=== PATIENT | female | born 1945 | race African-American/Black ===

== ENCOUNTER 2017-08-29 22:28 | Inpatient (IN) ==
[2017-08-30 00:04] LABS: Troponin I Only 0.017 NG/ML (0.00-0.045)
[2017-08-30] MEDS ORDERED: cefTRIAXone 1,000 MG in SODIUM CHLORIDE 0.9% 100 ML IV STA (01:13)
[2017-08-30] MEDS ORDERED: LEVOFLOXACIN INJ 750 MG in PREMIX 1 EACH IV STA (01:41)
[2017-08-30] MEDS ORDERED: LEVOFLOXACIN INJ 150 ML IV ONE (01:47)
[2017-08-30] MEDS ORDERED: guaiFENesin/DM ER 600-30 MG TABLET PO PRN (02:14)
[2017-08-30] MEDS ORDERED: ALBUTEROL/IPRATROPIUM 3 ML NEB RESP TX PRN (02:17)
[2017-08-30] MEDS: ONDANSETRON 4 MG/2 ML VIAL IV PRN (04:09)
[2017-08-30 05:48] LABS: Basophils % 0.3 % (0.0-0.8); Eosinophils # 0.1 10*3/uL (0.0-0.87); Eosinophils % 1.9 % (0.00-10.9); Hematocrit 31.1 VOL% (35.7-47.0); Hemoglobin 9.9 GM/DL (12.0-16.0); Immature Granulocytes % 0.5 %; Immature Granulocytes Absolute 0.03 #; Mean Corpuscular HGB Conc 31.8 GM/DL (32-36); Mean Corpuscular Hemoglobin 27 PG (27-34); Mean Corpuscular Volume 83.2 FL (87-102); Mean Platelet Volume 13.2 FL (9.6-12.0); Monocytes # 0.5 10*3/uL (0.11-0.8); Monocytes % 9.2 % (1.7-12.7); Neutrophils % 70.1 % (38.7-73.9); Platelet Count 224 T/CUMM (130-400); Red Blood Count 3.74 MC/CUMM (3.8-5.5); Red Cell Distribution Width 15.8 % (9.3-17.3); White Blood Count 5.7 T/CUMM (4-12)
[2017-08-30 06:16] LABS: Calcium 8.3 MG/DL (8.5-10.1); Osmolality,Calculated 277.5 MOS/KG (273-304); Potassium 4.1 MMOL/L (3.5-5.1)
[2017-08-30] MEDS: SODIUM CHLORIDE 0.45% 1,000 ML IV SCH (06:29)
[2017-08-30] MEDS: ENOXAPARIN 30 MG/0.3 ML SYRINGE SUBCUT SCH (09:20)
[2017-08-30] MEDS: ASPIRIN EC 81 MG TABLET PO SCH (09:20)
[2017-08-30] MEDS: FUROSEMIDE 40 MG TABLET PO SCH (09:20)
[2017-08-30] MEDS: PANTOPRAZOLE 40 MG TABLET PO SCH (09:20)
[2017-08-30] MEDS: MAGNESIUM OXIDE 400 MG TABLET PO SCH ×2 (09:20→20:37)
[2017-08-30] MEDS: POTASSIUM CHLORIDE 10 MEQ TABLET PO SCH (09:20)
[2017-08-30] MEDS: AMIODARONE 200 MG TABLET PO SCH (09:28)
[2017-08-30 15:20] LABS: Apearance,Urine CLEAR (Clear); Bilirubin,Urine Negative (Negative); Blood, Urine Negative (Negative); Glucose,Urine (UA) Negative (Negative); Hyaline Casts,Urine 1 /LPF (0-3); Ketones,Urine Negative (Negative); Mucus,Urine Occasional /LPF (Occasional); Nitrite,Urine Negative (Negative); Protein,Urine Negative; Squamous Epithelial Cell,Urine Occasional /HPF (0-10); Urine Color Yellow (Yellow); Urine Specific Gravity 1.009 (1.001-1.035); Urine Urobilinogen < 2.0 EU/DL (0.2-1.0); WBC,Urine <1 /HPF (0-6)
[2017-08-30] MEDS: DOXYCYCLINE HYCLATE 100 MG CAPSULE PO SCH (20:37)
[2017-08-30] MEDS ORDERED: LEVOFLOXACIN INJ 750 MG in PREMIX 1 EACH IV SCH (21:00)
[2017-08-31] MEDS: SODIUM CHLORIDE 0.45% 1,000 ML IV SCH (03:04)
[2017-08-31] MEDS: DOXYCYCLINE HYCLATE 100 MG CAPSULE PO SCH ×2 (09:17→21:13)
[2017-08-31] MEDS: AMIODARONE 200 MG TABLET PO SCH (09:17)
[2017-08-31] MEDS: ENOXAPARIN 30 MG/0.3 ML SYRINGE SUBCUT SCH (09:17)
[2017-08-31] MEDS: POTASSIUM CHLORIDE 10 MEQ TABLET PO SCH (09:18)
[2017-08-31] MEDS: MAGNESIUM OXIDE 400 MG TABLET PO SCH ×2 (09:18→21:13)
[2017-08-31] MEDS: FUROSEMIDE 40 MG TABLET PO SCH (09:18)
[2017-08-31] MEDS: ASPIRIN EC 81 MG TABLET PO SCH (09:18)
[2017-08-31] MEDS: PANTOPRAZOLE 40 MG TABLET PO SCH (09:19)
[2017-08-31] MEDS: ACETAMINOPHEN 325 MG TABLET PO PRN (13:24)
[2017-09-01 05:48] LABS: Basophils % 0.4 % (0.0-0.8); Eosinophils # 0.3 10*3/uL (0.0-0.87); Hematocrit 31.8 VOL% (35.7-47.0); Immature Granulocytes % 0.4 %; Immature Granulocytes Absolute 0.02 #; Lymphocytes # 0.7 10*3/uL (1.4-4.0); Lymphocytes % 13.9 % (21.3-54.2); Mean Corpuscular HGB Conc 31.4 GM/DL (32-36); Mean Corpuscular Hemoglobin 26 PG (27-34); Mean Corpuscular Volume 83.7 FL (87-102); Mean Platelet Volume 12.8 FL (9.6-12.0); Monocytes # 0.4 10*3/uL (0.11-0.8); Monocytes % 8.4 % (1.7-12.7); Neutrophils # 3.8 10*3/uL (1.4-7.4); Neutrophils % 71.9 % (38.7-73.9); Platelet Count 230 T/CUMM (130-400); Red Cell Distribution Width 15.5 % (9.3-17.3); White Blood Count 5.3 T/CUMM (4-12)
[2017-09-01 06:21] LABS: Osmolality,Calculated 281.3 MOS/KG (273-304); Potassium 4.3 MMOL/L (3.5-5.1)
[2017-09-01] MEDS: DOXYCYCLINE HYCLATE 100 MG CAPSULE PO SCH ×2 (09:17→21:03)
[2017-09-01] MEDS: ENOXAPARIN 30 MG/0.3 ML SYRINGE SUBCUT SCH (09:17)
[2017-09-01] MEDS: FUROSEMIDE 40 MG TABLET PO SCH (09:17)
[2017-09-01] MEDS: AMIODARONE 200 MG TABLET PO SCH (09:18)
[2017-09-01] MEDS: MAGNESIUM OXIDE 400 MG TABLET PO SCH ×2 (09:18→21:03)
[2017-09-01] MEDS: ASPIRIN EC 81 MG TABLET PO SCH (09:18)
[2017-09-01] MEDS: PANTOPRAZOLE 40 MG TABLET PO SCH (09:18)
[2017-09-01] MEDS: POTASSIUM CHLORIDE 10 MEQ TABLET PO SCH (09:18)
[2017-09-02 05:57] LABS: Basophils % 0.5 % (0.0-0.8); Eosinophils # 0.1 10*3/uL (0.0-0.87); Hematocrit 31.6 VOL% (35.7-47.0); Hemoglobin 10.3 GM/DL (12.0-16.0); Immature Granulocytes % 0.3 %; Immature Granulocytes Absolute 0.02 #; Lymphocytes # 0.9 10*3/uL (1.4-4.0); Lymphocytes % 12.7 % (21.3-54.2); Mean Corpuscular HGB Conc 32.6 GM/DL (32-36); Mean Corpuscular Hemoglobin 27 PG (27-34); Mean Corpuscular Volume 82.5 FL (87-102); Mean Platelet Volume 12.3 FL (9.6-12.0); Monocytes # 0.9 10*3/uL (0.11-0.8); Monocytes % 12.9 % (1.7-12.7); Neutrophils # 5.3 10*3/uL (1.4-7.4); Neutrophils % 72.6 % (38.7-73.9); Platelet Count 246 T/CUMM (130-400); Red Blood Count 3.83 MC/CUMM (3.8-5.5); Red Cell Distribution Width 15.7 % (9.3-17.3); White Blood Count 7.3 T/CUMM (4-12)
[2017-09-02 06:28] LABS: Calcium 8.6 MG/DL (8.5-10.1)
[2017-09-02 06:29] LABS: Osmolality,Calculated 276.7 MOS/KG (273-304); Potassium 3.9 MMOL/L (3.5-5.1)
[2017-09-02] MEDS: ONDANSETRON 4 MG/2 ML VIAL IV PRN (08:24)
[2017-09-02] MEDS: AMIODARONE 200 MG TABLET PO SCH (09:49)
[2017-09-02] MEDS: PANTOPRAZOLE 40 MG TABLET PO SCH (09:49)
[2017-09-02] MEDS: ASPIRIN EC 81 MG TABLET PO SCH (09:49)
[2017-09-02] MEDS: MAGNESIUM OXIDE 400 MG TABLET PO SCH ×2 (09:49→21:11)
[2017-09-02] MEDS: FUROSEMIDE 40 MG TABLET PO SCH (09:49)
[2017-09-02] MEDS: POTASSIUM CHLORIDE 10 MEQ TABLET PO SCH (09:49)
[2017-09-02] MEDS: DOXYCYCLINE HYCLATE 100 MG CAPSULE PO SCH ×2 (09:49→21:11)
[2017-09-02] MEDS: ENOXAPARIN 30 MG/0.3 ML SYRINGE SUBCUT SCH (09:49)
[2017-09-02] MEDS: FUROSEMIDE 40 MG/4 ML VIAL IV SCH (16:25)
[2017-09-03 04:57] LABS: Basophils % 0.3 % (0.0-0.8); Eosinophils # 0.1 10*3/uL (0.0-0.87); Eosinophils % 1.6 % (0.00-10.9); Immature Granulocytes % 0.8 %; Immature Granulocytes Absolute 0.07 #; Lymphocytes # 0.9 10*3/uL (1.4-4.0); Lymphocytes % 9.9 % (21.3-54.2); Mean Corpuscular HGB Conc 32.3 GM/DL (32-36); Mean Corpuscular Hemoglobin 27 PG (27-34); Mean Corpuscular Volume 82.9 FL (87-102); Mean Platelet Volume 12.6 FL (9.6-12.0); Monocytes # 1.1 10*3/uL (0.11-0.8); Monocytes % 12.8 % (1.7-12.7); Neutrophils # 6.5 10*3/uL (1.4-7.4); Neutrophils % 74.6 % (38.7-73.9); Platelet Count 233 T/CUMM (130-400); Red Blood Count 3.74 MC/CUMM (3.8-5.5); Red Cell Distribution Width 15.7 % (9.3-17.3); White Blood Count 8.8 T/CUMM (4-12)
[2017-09-03 05:38] LABS: Calcium 8.6 MG/DL (8.5-10.1); Osmolality,Calculated 274.8 MOS/KG (273-304); Potassium 3.9 MMOL/L (3.5-5.1)
[2017-09-03] MEDS: PANTOPRAZOLE 40 MG TABLET PO SCH (09:19)
[2017-09-03] MEDS: MAGNESIUM OXIDE 400 MG TABLET PO SCH ×2 (09:19→20:50)
[2017-09-03] MEDS: FUROSEMIDE 40 MG/4 ML VIAL IV SCH ×2 (09:19→16:35)
[2017-09-03] MEDS: POTASSIUM CHLORIDE 10 MEQ TABLET PO SCH (09:19)
[2017-09-03] MEDS: DOXYCYCLINE HYCLATE 100 MG CAPSULE PO SCH ×2 (09:19→20:50)
[2017-09-03] MEDS: ASPIRIN EC 81 MG TABLET PO SCH (09:19)
[2017-09-03] MEDS: ENOXAPARIN 30 MG/0.3 ML SYRINGE SUBCUT SCH (09:19)
[2017-09-03] MEDS: ACETAMINOPHEN 325 MG TABLET PO PRN (09:19)
[2017-09-03] MEDS: AMIODARONE 200 MG TABLET PO SCH (09:19)
[2017-09-03] MEDS: CARVEDILOL 3.125 MG TABLET PO SCH ×2 (13:57→20:50)
[2017-09-04 06:19] LABS: Basophils % 0.3 % (0.0-0.8); Eosinophils # 0.3 10*3/uL (0.0-0.87); Eosinophils % 3.7 % (0.00-10.9); Hematocrit 29.4 VOL% (35.7-47.0); Hemoglobin 9.3 GM/DL (12.0-16.0); Immature Granulocytes % 0.6 %; Immature Granulocytes Absolute 0.04 #; Lymphocytes # 0.9 10*3/uL (1.4-4.0); Lymphocytes % 12.6 % (21.3-54.2); Mean Corpuscular HGB Conc 31.6 GM/DL (32-36); Mean Corpuscular Hemoglobin 26 PG (27-34); Mean Corpuscular Volume 83.1 FL (87-102); Mean Platelet Volume 13.1 FL (9.6-12.0); Monocytes # 0.9 10*3/uL (0.11-0.8); Monocytes % 12.4 % (1.7-12.7); Neutrophils # 4.9 10*3/uL (1.4-7.4); Neutrophils % 70.4 % (38.7-73.9); Platelet Count 232 T/CUMM (130-400); Red Blood Count 3.54 MC/CUMM (3.8-5.5); Red Cell Distribution Width 15.4 % (9.3-17.3)
[2017-09-04 07:04] LABS: Calcium 8.6 MG/DL (8.5-10.1); Osmolality,Calculated 275.7 MOS/KG (273-304); Potassium 4.4 MMOL/L (3.5-5.1)
[2017-09-04] MEDS: FUROSEMIDE 40 MG/4 ML VIAL IV SCH ×2 (10:07→16:13)
[2017-09-04] MEDS: ENOXAPARIN 40 MG/0.4 ML SYRINGE SUBCUT SCH (10:08)
[2017-09-04] MEDS: MAGNESIUM OXIDE 400 MG TABLET PO SCH ×2 (10:08→21:03)
[2017-09-04] MEDS: metOLazone 5 MG TABLET PO SCH (10:08)
[2017-09-04] MEDS: CARVEDILOL 3.125 MG TABLET PO SCH ×2 (10:09→21:03)
[2017-09-04] MEDS: AMIODARONE 200 MG TABLET PO SCH (10:09)
[2017-09-04] MEDS: PANTOPRAZOLE 40 MG TABLET PO SCH (10:09)
[2017-09-04] MEDS: DOXYCYCLINE HYCLATE 100 MG CAPSULE PO SCH ×2 (10:09→21:03)
[2017-09-04] MEDS: POTASSIUM CHLORIDE 10 MEQ TABLET PO SCH (10:09)
[2017-09-04] MEDS: ASPIRIN EC 81 MG TABLET PO SCH (10:09)
[2017-09-04] MEDS: ONDANSETRON 4 MG/2 ML VIAL IV PRN (11:06)
[2017-09-04] MEDS: cefTRIAXone 2,000 MG in SYRINGE 1 EACH IV SCH (13:39)
[2017-09-05 04:58] LABS: Basophils % 0.4 % (0.0-0.8); Eosinophils # 0.2 10*3/uL (0.0-0.87); Eosinophils % 4.2 % (0.00-10.9); Hematocrit 29.5 VOL% (35.7-47.0); Hemoglobin 9.4 GM/DL (12.0-16.0); Immature Granulocytes % 0.8 %; Immature Granulocytes Absolute 0.04 #; Lymphocytes # 0.6 10*3/uL (1.4-4.0); Lymphocytes % 12.3 % (21.3-54.2); Mean Corpuscular HGB Conc 31.9 GM/DL (32-36); Mean Corpuscular Hemoglobin 26 PG (27-34); Mean Corpuscular Volume 81.9 FL (87-102); Mean Platelet Volume 12.3 FL (9.6-12.0); Monocytes # 0.7 10*3/uL (0.11-0.8); Monocytes % 13.8 % (1.7-12.7); Neutrophils # 3.6 10*3/uL (1.4-7.4); Neutrophils % 68.5 % (38.7-73.9); Platelet Count 240 T/CUMM (130-400); Red Cell Distribution Width 15.4 % (9.3-17.3); White Blood Count 5.2 T/CUMM (4-12)
[2017-09-05 05:31] LABS: Calcium 8.8 MG/DL (8.5-10.1); Potassium 3.4 MMOL/L (3.5-5.1)
[2017-09-05] MEDS: POTASSIUM CHLORIDE 10 MEQ TABLET PO SCH (09:13)
[2017-09-05] MEDS: DOXYCYCLINE HYCLATE 100 MG CAPSULE PO SCH (09:14)
[2017-09-05] MEDS: FUROSEMIDE 40 MG/4 ML VIAL IV SCH ×2 (09:14→18:10)
[2017-09-05] MEDS: CARVEDILOL 3.125 MG TABLET PO SCH (09:14)
[2017-09-05] MEDS: MAGNESIUM OXIDE 400 MG TABLET PO SCH (09:14)
[2017-09-05] MEDS: ASPIRIN EC 81 MG TABLET PO SCH (09:14)
[2017-09-05] MEDS: PANTOPRAZOLE 40 MG TABLET PO SCH (09:14)
[2017-09-05] MEDS: ENOXAPARIN 40 MG/0.4 ML SYRINGE SUBCUT SCH (09:14)
[2017-09-05] MEDS: AMIODARONE 200 MG TABLET PO SCH (09:14)
[2017-09-05] MEDS: metOLazone 5 MG TABLET PO SCH (09:14)
[2017-09-05] MEDS ORDERED: cefTRIAXone 2,000 MG in SYRINGE 1 EACH IV SCH (11:00)
[2017-09-05] MEDS: ONDANSETRON 4 MG/2 ML VIAL IV PRN (11:24)
[2017-09-05] MEDS: cefTRIAXone 2,000 MG in SYRINGE 1 EACH IV SCH (12:45)
[2017-09-05] MEDS ORDERED: POTASSIUM CHLORIDE 20 MEQ TABLET PO ONE (12:48)
[2017-09-05 17:44] VITALS: BP 105/59
== END 2017-09-05 18:30 | disposition home or self-care (01) | DRG 193 ==
LOC: EDBD → EDUNIT# → N.ED 22:28 → N.EDINP 08-30 02:14 → N.TELES 08-30 03:37
PROVIDERS: ADMIT Hospitalist; ATTEND Hospitalist

== ENCOUNTER 2019-08-25 23:50 | Inpatient (IN) ==
[2019-08-26] MEDS ORDERED: PROMETHAZINE 25 MG/1 ML VIAL IM PRN (03:16)
[2019-08-26] MEDS ORDERED: ALBUTEROL 2.5 MG/3 ML NEB RESP TX PRN (03:16)
[2019-08-26] MEDS: AMPICILLIN/SULBACTAM 1,500 MG in SODIUM CHLORIDE 0.9% 100 ML IV SCH ×4 (03:55→21:05)
[2019-08-26] MEDS ORDERED: MECLIZINE 25 MG TABLET PO PRN (04:19)
[2019-08-26] MEDS ORDERED: LEVALBUTEROL 1.25 MG/3 ML NEB RESP TX PRN (04:20)
[2019-08-26 06:40] LABS: Basophils % 0.2 % (0.0-0.8); Eosinophils % 0.2 % (0.00-10.9); Hematocrit 36.3 VOL% (35.7-47.0); Hemoglobin 11.4 GM/DL (12.0-16.0); Immature Granulocytes % 0.4 %; Immature Granulocytes Absolute 0.05 #; Lymphocytes # 0.5 10*3/uL (1.4-4.0); Lymphocytes % 4.4 % (21.3-54.2); Mean Corpuscular HGB Conc 31.4 GM/DL (32-36); Mean Corpuscular Volume 88.3 FL (87-102); Mean Platelet Volume 13.9 FL (9.6-12.0); Monocytes % 5.4 % (1.7-12.7); Neutrophils % 89.4 % (38.7-73.9); Platelet Count 131 T/CUMM (130-400); Red Blood Count 4.11 MC/CUMM (3.8-5.5); Red Cell Distribution Width 13.6 % (9.3-17.3); White Blood Count 12.2 T/CUMM (4-12)
[2019-08-26 07:01] LABS: Albumin 3.4 G/DL (3.4-5.0); Bilirubin,Total 0.7 MG/DL (0.2-1.0); Calcium 8.7 MG/DL (8.5-10.1); Osmolality,Calculated 286.1 MOS/KG (273-304)
[2019-08-26 07:13] LABS: Lymphocytes 2 % (20-55); Segmented Neutrophils 95 % (50-85); Total Cells Counted 100
[2019-08-26 07:15] LABS: Hypochromasia 2+; Ovalocytes Few
[2019-08-26 07:16] LABS: Microcytosis 2+; Platelet Estimate Adequate; Polychromasia Slight
[2019-08-26] MEDS: ENOXAPARIN 40 MG/0.4 ML SYRINGE SUBCUT SCH (08:32)
[2019-08-26] MEDS ORDERED: PANTOPRAZOLE 40 MG VIAL IV SCH (09:00)
[2019-08-26] MEDS ORDERED: RACEPINEPHRINE 0.5 ML NEB RESP TX ONE (13:16)
[2019-08-27] MEDS: AMPICILLIN/SULBACTAM 1,500 MG in SODIUM CHLORIDE 0.9% 100 ML IV SCH ×4 (04:58→21:00)
[2019-08-27 05:48] LABS: Basophils % 0.3 % (0.0-0.8); Eosinophils # 0.1 10*3/uL (0.0-0.87); Eosinophils % 1.9 % (0.00-10.9); Hematocrit 32.2 VOL% (35.7-47.0); Immature Granulocytes % 0.3 %; Immature Granulocytes Absolute 0.02 #; Lymphocytes # 1.1 10*3/uL (1.4-4.0); Lymphocytes % 15.7 % (21.3-54.2); Mean Corpuscular HGB Conc 31.1 GM/DL (32-36); Mean Corpuscular Volume 89.7 FL (87-102); Mean Platelet Volume 14.2 FL (9.6-12.0); Monocytes % 9.9 % (1.7-12.7); Neutrophils % 71.9 % (38.7-73.9); Platelet Count 111 T/CUMM (130-400); Red Blood Count 3.59 MC/CUMM (3.8-5.5); Red Cell Distribution Width 13.6 % (9.3-17.3); White Blood Count 7.2 T/CUMM (4-12)
[2019-08-27 06:04] LABS: Calcium 8.7 MG/DL (8.5-10.1); Osmolality,Calculated 280.4 MOS/KG (273-304)
[2019-08-27] MEDS: MAGNESIUM OXIDE 400 MG TABLET PO SCH ×2 (08:57→16:24)
[2019-08-27] MEDS: ASPIRIN EC 81 MG TABLET PO SCH (08:57)
[2019-08-27] MEDS: PANTOPRAZOLE 40 MG TABLET PO SCH (08:57)
[2019-08-27] MEDS: ACETAMINOPHEN 325 MG TABLET PO PRN ×2 (08:57→21:32)
[2019-08-27] MEDS: IRON (CARBONYL)/VIT C/B12/FA TABLET PO SCH (08:57)
[2019-08-27] MEDS: ENOXAPARIN 40 MG/0.4 ML SYRINGE SUBCUT SCH (08:57)
[2019-08-27] MEDS ORDERED: Mesalamine [Apriso] 1.5 GM PO SCH (09:00)
[2019-08-27] MEDS: ONDANSETRON 4 MG/2 ML VIAL IV PRN (18:19)
[2019-08-28] MEDS: AMPICILLIN/SULBACTAM 1,500 MG in SODIUM CHLORIDE 0.9% 100 ML IV SCH ×4 (04:08→21:42)
[2019-08-28] MEDS: MAGNESIUM OXIDE 400 MG TABLET PO SCH ×2 (08:48→16:35)
[2019-08-28] MEDS: IRON (CARBONYL)/VIT C/B12/FA TABLET PO SCH (08:48)
[2019-08-28] MEDS: PANTOPRAZOLE 40 MG TABLET PO SCH (08:48)
[2019-08-28] MEDS: ENOXAPARIN 40 MG/0.4 ML SYRINGE SUBCUT SCH (08:48)
[2019-08-28] MEDS: ASPIRIN EC 81 MG TABLET PO SCH (08:48)
[2019-08-28 09:29] LABS: Hematocrit 35.5 VOL% (35.7-47.0)
[2019-08-29] MEDS: AMPICILLIN/SULBACTAM 1,500 MG in SODIUM CHLORIDE 0.9% 100 ML IV SCH ×4 (04:30→23:04)
[2019-08-29 05:03] LABS: Calcium 8.7 MG/DL (8.5-10.1); Osmolality,Calculated 277.5 MOS/KG (273-304)
[2019-08-29] MEDS: ENOXAPARIN 40 MG/0.4 ML SYRINGE SUBCUT SCH (08:43)
[2019-08-29] MEDS: POTASSIUM CHLORIDE 10 MEQ TABLET PO SCH (08:44)
[2019-08-29] MEDS: IRON (CARBONYL)/VIT C/B12/FA TABLET PO SCH (08:44)
[2019-08-29] MEDS: DIGOXIN 0.125 MG TABLET PO SCH (08:44)
[2019-08-29] MEDS: ASPIRIN EC 81 MG TABLET PO SCH (08:44)
[2019-08-29] MEDS: LISINOPRIL 2.5 MG TABLET PO SCH (08:44)
[2019-08-29] MEDS: MOMETASONE 50 MCG NASAL SPRAY 17 GM BOTTLE BOTH NARES SCH (08:44)
[2019-08-29] MEDS: AMIODARONE 200 MG TABLET PO SCH (08:45)
[2019-08-29] MEDS: PANTOPRAZOLE 40 MG TABLET PO SCH (08:45)
[2019-08-29] MEDS: MAGNESIUM OXIDE 400 MG TABLET PO SCH ×2 (08:48→17:00)
[2019-08-29] MEDS ORDERED: FUROSEMIDE 20 MG TABLET PO SCH (09:00)
[2019-08-29] MEDS ORDERED: FUROSEMIDE 20 MG/2 ML VIAL IV ONE (12:10)
[2019-08-29 12:42] LABS: Basophils % 0.2 % (0.0-0.8); Eosinophils % 0.1 % (0.00-10.9); Hematocrit 29.9 VOL% (35.7-47.0); Hemoglobin 9.3 GM/DL (12.0-16.0); Immature Granulocytes % 0.7 %; Immature Granulocytes Absolute 0.08 #; Lymphocytes # 0.7 10*3/uL (1.4-4.0); Lymphocytes % 5.7 % (21.3-54.2); Mean Corpuscular HGB Conc 31.1 GM/DL (32-36); Mean Platelet Volume 14.5 FL (9.6-12.0); Monocytes % 7.8 % (1.7-12.7); Neutrophils % 85.5 % (38.7-73.9); Platelet Count 106 T/CUMM (130-400); Red Blood Count 3.36 MC/CUMM (3.8-5.5); Red Cell Distribution Width 13.3 % (9.3-17.3); White Blood Count 12.2 T/CUMM (4-12)
[2019-08-29] MEDS: FUROSEMIDE 40 MG/4 ML VIAL IV SCH (18:20)
[2019-08-30] MEDS: AMPICILLIN/SULBACTAM 1,500 MG in SODIUM CHLORIDE 0.9% 100 ML IV SCH ×4 (04:29→22:08)
[2019-08-30] MEDS: BENZONATATE 100 MG CAPSULE PO PRN (04:30)
[2019-08-30 04:35] LABS: Basophils % 0.2 % (0.0-0.8); Eosinophils % 0.1 % (0.00-10.9); Hematocrit 30.2 VOL% (35.7-47.0); Hemoglobin 9.4 GM/DL (12.0-16.0); Immature Granulocytes % 0.5 %; Immature Granulocytes Absolute 0.06 #; Lymphocytes # 0.9 10*3/uL (1.4-4.0); Lymphocytes % 7.4 % (21.3-54.2); Mean Corpuscular HGB Conc 31.1 GM/DL (32-36); Mean Corpuscular Volume 86.8 FL (87-102); Mean Platelet Volume 14.7 FL (9.6-12.0); Monocytes % 8.3 % (1.7-12.7); Neutrophils % 83.5 % (38.7-73.9); Platelet Count 125 T/CUMM (130-400); Red Blood Count 3.48 MC/CUMM (3.8-5.5); Red Cell Distribution Width 13.4 % (9.3-17.3); White Blood Count 11.8 T/CUMM (4-12)
[2019-08-30 04:58] LABS: Calcium 8.7 MG/DL (8.5-10.1); Osmolality,Calculated 282.3 MOS/KG (273-304)
[2019-08-30] MEDS: FUROSEMIDE 40 MG/4 ML VIAL IV SCH ×2 (09:20→16:35)
[2019-08-30] MEDS: AMIODARONE 200 MG TABLET PO SCH (10:01)
[2019-08-30] MEDS: MAGNESIUM OXIDE 400 MG TABLET PO SCH ×2 (10:01→16:35)
[2019-08-30] MEDS: PANTOPRAZOLE 40 MG TABLET PO SCH (10:01)
[2019-08-30] MEDS: IRON (CARBONYL)/VIT C/B12/FA TABLET PO SCH (10:01)
[2019-08-30] MEDS: POTASSIUM CHLORIDE 10 MEQ TABLET PO SCH (10:01)
[2019-08-30] MEDS: DIGOXIN 0.125 MG TABLET PO SCH (10:02)
[2019-08-30] MEDS: ASPIRIN EC 81 MG TABLET PO SCH (10:07)
[2019-08-30] MEDS: ENOXAPARIN 40 MG/0.4 ML SYRINGE SUBCUT SCH (10:08)
[2019-08-30] MEDS: LISINOPRIL 2.5 MG TABLET PO SCH (10:09)
[2019-08-30] MEDS: MOMETASONE 50 MCG NASAL SPRAY 17 GM BOTTLE BOTH NARES SCH (10:11)
[2019-08-30] MEDS: ONDANSETRON 4 MG/2 ML VIAL IV PRN (11:25)
[2019-08-31] MEDS: AMPICILLIN/SULBACTAM 1,500 MG in SODIUM CHLORIDE 0.9% 100 ML IV SCH ×4 (04:19→22:02)
[2019-08-31 04:53] LABS: Basophils % 0.2 % (0.0-0.8); Eosinophils # 0.1 10*3/uL (0.0-0.87); Eosinophils % 1.3 % (0.00-10.9); Hematocrit 28.5 VOL% (35.7-47.0); Hemoglobin 9.1 GM/DL (12.0-16.0); Immature Granulocytes % 0.4 %; Immature Granulocytes Absolute 0.04 #; Lymphocytes # 0.8 10*3/uL (1.4-4.0); Lymphocytes % 7.3 % (21.3-54.2); Mean Corpuscular HGB Conc 31.9 GM/DL (32-36); Mean Corpuscular Volume 86.1 FL (87-102); Mean Platelet Volume 13.6 FL (9.6-12.0); Neutrophils % 82.8 % (38.7-73.9); Platelet Count 136 T/CUMM (130-400); Red Blood Count 3.31 MC/CUMM (3.8-5.5); Red Cell Distribution Width 13.4 % (9.3-17.3); White Blood Count 11.1 T/CUMM (4-12)
[2019-08-31 05:08] LABS: Calcium 8.8 MG/DL (8.5-10.1); Osmolality,Calculated 284.1 MOS/KG (273-304)
[2019-08-31] MEDS: FUROSEMIDE 40 MG/4 ML VIAL IV SCH ×2 (08:59→16:38)
[2019-08-31] MEDS: ASPIRIN EC 81 MG TABLET PO SCH (09:50)
[2019-08-31] MEDS: DIGOXIN 0.125 MG TABLET PO SCH (09:50)
[2019-08-31] MEDS: LISINOPRIL 2.5 MG TABLET PO SCH (09:50)
[2019-08-31] MEDS: MAGNESIUM OXIDE 400 MG TABLET PO SCH ×2 (09:51→16:40)
[2019-08-31] MEDS: IRON (CARBONYL)/VIT C/B12/FA TABLET PO SCH (09:51)
[2019-08-31] MEDS: ENOXAPARIN 40 MG/0.4 ML SYRINGE SUBCUT SCH (09:52)
[2019-08-31] MEDS: AMIODARONE 200 MG TABLET PO SCH (09:53)
[2019-08-31] MEDS: POTASSIUM CHLORIDE 10 MEQ TABLET PO SCH (09:53)
[2019-08-31] MEDS: PANTOPRAZOLE 40 MG TABLET PO SCH (09:57)
[2019-08-31] MEDS: MOMETASONE 50 MCG NASAL SPRAY 17 GM BOTTLE BOTH NARES SCH (09:58)
[2019-08-31] MEDS: BENZONATATE 100 MG CAPSULE PO PRN (10:54)
[2019-08-31] MEDS: NYSTATIN 500,000 UNIT/5 ML UDCUP SWISH/SWAL SCH ×2 (17:49→22:02)
[2019-08-31] MEDS ORDERED: NYSTATIN 500,000 UNIT/5 ML UDCUP SWISH/SWAL SCH (21:00)
[2019-09-01] MEDS: AMPICILLIN/SULBACTAM 1,500 MG in SODIUM CHLORIDE 0.9% 100 ML IV SCH ×4 (03:59→22:04)
[2019-09-01] MEDS: PANTOPRAZOLE 40 MG TABLET PO SCH (08:53)
[2019-09-01] MEDS: LISINOPRIL 2.5 MG TABLET PO SCH (08:53)
[2019-09-01] MEDS: ASPIRIN EC 81 MG TABLET PO SCH (08:53)
[2019-09-01] MEDS: DIGOXIN 0.125 MG TABLET PO SCH (08:53)
[2019-09-01] MEDS: IRON (CARBONYL)/VIT C/B12/FA TABLET PO SCH (08:53)
[2019-09-01] MEDS: AMIODARONE 200 MG TABLET PO SCH (08:53)
[2019-09-01] MEDS: POTASSIUM CHLORIDE 10 MEQ TABLET PO SCH (08:53)
[2019-09-01] MEDS: MAGNESIUM OXIDE 400 MG TABLET PO SCH ×2 (08:53→17:02)
[2019-09-01] MEDS: FUROSEMIDE 40 MG/4 ML VIAL IV SCH ×2 (08:54→16:45)
[2019-09-01] MEDS: ENOXAPARIN 40 MG/0.4 ML SYRINGE SUBCUT SCH (08:54)
[2019-09-01] MEDS: NYSTATIN 500,000 UNIT/5 ML UDCUP SWISH/SWAL SCH ×4 (08:54→21:42)
[2019-09-01] MEDS: MOMETASONE 50 MCG NASAL SPRAY 17 GM BOTTLE BOTH NARES SCH (09:00)
[2019-09-02] MEDS: AMPICILLIN/SULBACTAM 1,500 MG in SODIUM CHLORIDE 0.9% 100 ML IV SCH ×2 (03:49→09:53)
[2019-09-02 05:43] LABS: Basophils % 0.5 % (0.0-0.8); Eosinophils # 0.3 10*3/uL (0.0-0.87); Hematocrit 26.5 VOL% (35.7-47.0); Hemoglobin 8.3 GM/DL (12.0-16.0); Immature Granulocytes % 0.4 %; Immature Granulocytes Absolute 0.02 #; Lymphocytes # 0.7 10*3/uL (1.4-4.0); Lymphocytes % 13.1 % (21.3-54.2); Mean Corpuscular HGB Conc 31.3 GM/DL (32-36); Mean Corpuscular Volume 86.9 FL (87-102); Mean Platelet Volume 13.2 FL (9.6-12.0); Monocytes % 10.3 % (1.7-12.7); Neutrophils % 70.7 % (38.7-73.9); Platelet Count 168 T/CUMM (130-400); Red Blood Count 3.05 MC/CUMM (3.8-5.5); Red Cell Distribution Width 13.3 % (9.3-17.3); White Blood Count 5.6 T/CUMM (4-12)
[2019-09-02 06:07] LABS: Calcium 8.5 MG/DL (8.5-10.1); Osmolality,Calculated 282.1 MOS/KG (273-304)
[2019-09-02] MEDS: NYSTATIN 500,000 UNIT/5 ML UDCUP SWISH/SWAL SCH ×4 (09:42→20:46)
[2019-09-02] MEDS: FUROSEMIDE 40 MG/4 ML VIAL IV SCH ×2 (09:42→16:49)
[2019-09-02] MEDS: ENOXAPARIN 40 MG/0.4 ML SYRINGE SUBCUT SCH (09:42)
[2019-09-02] MEDS: ASPIRIN EC 81 MG TABLET PO SCH (09:43)
[2019-09-02] MEDS: PANTOPRAZOLE 40 MG TABLET PO SCH (09:43)
[2019-09-02] MEDS: AMIODARONE 200 MG TABLET PO SCH (09:43)
[2019-09-02] MEDS: LISINOPRIL 2.5 MG TABLET PO SCH (09:43)
[2019-09-02] MEDS: POTASSIUM CHLORIDE 10 MEQ TABLET PO SCH (09:43)
[2019-09-02] MEDS: IRON (CARBONYL)/VIT C/B12/FA TABLET PO SCH (09:43)
[2019-09-02] MEDS: MAGNESIUM OXIDE 400 MG TABLET PO SCH ×2 (09:44→16:49)
[2019-09-02] MEDS: DIGOXIN 0.125 MG TABLET PO SCH (09:44)
[2019-09-02] MEDS: MOMETASONE 50 MCG NASAL SPRAY 17 GM BOTTLE BOTH NARES SCH (09:45)
[2019-09-02] MEDS ORDERED: POTASSIUM CHLORIDE 20 MEQ TABLET PO ONE (13:08)
[2019-09-02] MEDS: POTASSIUM BICARB EFFERVESCENT 25 MEQ TABLET PO SCH ×2 (14:17→20:46)
[2019-09-03 06:43] LABS: Basophils % 0.3 % (0.0-0.8); Eosinophils # 0.2 10*3/uL (0.0-0.87); Eosinophils % 3.6 % (0.00-10.9); Hematocrit 28.9 VOL% (35.7-47.0); Immature Granulocytes % 0.6 %; Immature Granulocytes Absolute 0.04 #; Lymphocytes # 0.9 10*3/uL (1.4-4.0); Lymphocytes % 13.4 % (21.3-54.2); Mean Corpuscular HGB Conc 31.1 GM/DL (32-36); Mean Corpuscular Volume 86.5 FL (87-102); Mean Platelet Volume 12.9 FL (9.6-12.0); Monocytes % 8.9 % (1.7-12.7); Neutrophils % 73.2 % (38.7-73.9); Platelet Count 216 T/CUMM (130-400); Red Blood Count 3.34 MC/CUMM (3.8-5.5); Red Cell Distribution Width 13.3 % (9.3-17.3); White Blood Count 6.4 T/CUMM (4-12)
[2019-09-03 07:06] LABS: Calcium 8.9 MG/DL (8.5-10.1)
[2019-09-03] MEDS: MAGNESIUM OXIDE 400 MG TABLET PO SCH ×2 (08:51→16:46)
[2019-09-03] MEDS: POTASSIUM BICARB EFFERVESCENT 25 MEQ TABLET PO SCH ×2 (08:51→20:40)
[2019-09-03] MEDS: PANTOPRAZOLE 40 MG TABLET PO SCH (08:51)
[2019-09-03] MEDS: IRON (CARBONYL)/VIT C/B12/FA TABLET PO SCH (08:51)
[2019-09-03] MEDS: AMIODARONE 200 MG TABLET PO SCH (08:51)
[2019-09-03] MEDS: LISINOPRIL 2.5 MG TABLET PO SCH (08:51)
[2019-09-03] MEDS: DIGOXIN 0.125 MG TABLET PO SCH (08:52)
[2019-09-03] MEDS: AMOXICILLIN/CLAV 500 MG TABLET PO SCH ×2 (08:53→20:40)
[2019-09-03] MEDS: ENOXAPARIN 40 MG/0.4 ML SYRINGE SUBCUT SCH (08:53)
[2019-09-03] MEDS: FUROSEMIDE 40 MG/4 ML VIAL IV SCH ×2 (08:53→16:46)
[2019-09-03] MEDS: POTASSIUM CHLORIDE 10 MEQ TABLET PO SCH (08:53)
[2019-09-03] MEDS: NYSTATIN 500,000 UNIT/5 ML UDCUP SWISH/SWAL SCH ×4 (08:53→20:40)
[2019-09-03] MEDS: ASPIRIN EC 81 MG TABLET PO SCH (08:53)
[2019-09-04 07:04] LABS: Basophils % 0.4 % (0.0-0.8); Eosinophils # 0.2 10*3/uL (0.0-0.87); Eosinophils % 3.4 % (0.00-10.9); Hematocrit 27.7 VOL% (35.7-47.0); Hemoglobin 8.5 GM/DL (12.0-16.0); Immature Granulocytes % 0.8 %; Immature Granulocytes Absolute 0.04 #; Lymphocytes # 1.1 10*3/uL (1.4-4.0); Lymphocytes % 20.4 % (21.3-54.2); Mean Corpuscular HGB Conc 30.7 GM/DL (32-36); Mean Corpuscular Volume 86.8 FL (87-102); Mean Platelet Volume 12.4 FL (9.6-12.0); Monocytes % 9.1 % (1.7-12.7); Neutrophils % 65.9 % (38.7-73.9); Platelet Count 251 T/CUMM (130-400); Red Blood Count 3.19 MC/CUMM (3.8-5.5); Red Cell Distribution Width 13.4 % (9.3-17.3); White Blood Count 5.3 T/CUMM (4-12)
[2019-09-04 07:34] LABS: Calcium 8.9 MG/DL (8.5-10.1); Osmolality,Calculated 286.8 MOS/KG (273-304)
[2019-09-04] MEDS: PANTOPRAZOLE 40 MG TABLET PO SCH (08:43)
[2019-09-04] MEDS: POTASSIUM BICARB EFFERVESCENT 25 MEQ TABLET PO SCH ×2 (08:43→21:20)
[2019-09-04] MEDS: IRON (CARBONYL)/VIT C/B12/FA TABLET PO SCH (08:43)
[2019-09-04] MEDS: AMIODARONE 200 MG TABLET PO SCH (08:43)
[2019-09-04] MEDS: POTASSIUM CHLORIDE 10 MEQ TABLET PO SCH (08:43)
[2019-09-04] MEDS: NYSTATIN 500,000 UNIT/5 ML UDCUP SWISH/SWAL SCH ×4 (08:44→21:20)
[2019-09-04] MEDS: LISINOPRIL 2.5 MG TABLET PO SCH (08:44)
[2019-09-04] MEDS: ENOXAPARIN 40 MG/0.4 ML SYRINGE SUBCUT SCH (08:44)
[2019-09-04] MEDS: MAGNESIUM OXIDE 400 MG TABLET PO SCH ×2 (08:44→16:43)
[2019-09-04] MEDS: FUROSEMIDE 40 MG/4 ML VIAL IV SCH (08:44)
[2019-09-04] MEDS: ASPIRIN EC 81 MG TABLET PO SCH (08:44)
[2019-09-04] MEDS: AMOXICILLIN/CLAV 500 MG TABLET PO SCH ×2 (08:45→21:20)
[2019-09-04] MEDS: DIGOXIN 0.125 MG TABLET PO SCH (08:45)
[2019-09-05 05:04] LABS: Basophils % 0.5 % (0.0-0.8); Eosinophils # 0.2 10*3/uL (0.0-0.87); Eosinophils % 3.3 % (0.00-10.9); Hematocrit 27.8 VOL% (35.7-47.0); Hemoglobin 8.8 GM/DL (12.0-16.0); Immature Granulocytes % 1.6 %; Lymphocytes # 1.2 10*3/uL (1.4-4.0); Lymphocytes % 19.5 % (21.3-54.2); Mean Corpuscular HGB Conc 31.7 GM/DL (32-36); Mean Corpuscular Volume 86.6 FL (87-102); Mean Platelet Volume 12.2 FL (9.6-12.0); Monocytes % 7.7 % (1.7-12.7); Neutrophils % 67.4 % (38.7-73.9); Platelet Count 294 T/CUMM (130-400); Red Blood Count 3.21 MC/CUMM (3.8-5.5); Red Cell Distribution Width 13.5 % (9.3-17.3); White Blood Count 6.1 T/CUMM (4-12)
[2019-09-05 05:23] LABS: Osmolality,Calculated 283.3 MOS/KG (273-304)
[2019-09-05] MEDS ORDERED: FUROSEMIDE 40 MG/4 ML VIAL IV SCH (09:00)
[2019-09-05] MEDS: AMOXICILLIN/CLAV 500 MG TABLET PO SCH (09:34)
[2019-09-05] MEDS: PANTOPRAZOLE 40 MG TABLET PO SCH (09:34)
[2019-09-05] MEDS: DIGOXIN 0.125 MG TABLET PO SCH (09:34)
[2019-09-05] MEDS: POTASSIUM CHLORIDE 10 MEQ TABLET PO SCH (09:34)
[2019-09-05] MEDS: IRON (CARBONYL)/VIT C/B12/FA TABLET PO SCH (09:34)
[2019-09-05] MEDS: MAGNESIUM OXIDE 400 MG TABLET PO SCH (09:34)
[2019-09-05] MEDS: LISINOPRIL 2.5 MG TABLET PO SCH (09:34)
[2019-09-05] MEDS: ASPIRIN EC 81 MG TABLET PO SCH (09:34)
[2019-09-05] MEDS: AMIODARONE 200 MG TABLET PO SCH (09:34)
[2019-09-05] MEDS: NYSTATIN 500,000 UNIT/5 ML UDCUP SWISH/SWAL SCH ×2 (09:36→12:55)
[2019-09-05] MEDS: ENOXAPARIN 40 MG/0.4 ML SYRINGE SUBCUT SCH (09:36)
[2019-09-05] MEDS: POTASSIUM BICARB EFFERVESCENT 25 MEQ TABLET PO SCH (09:48)
[2019-09-05 16:42] VITALS: BP 108/58
[2019-09-06] MEDS ORDERED: FUROSEMIDE 40 MG TABLET PO SCH (09:00)
== END 2019-09-05 17:40 | disposition home or self-care (01) | DRG 177 ==
LOC: N.ICU 08-26 01:22 → SUPCPDRO 08-26 01:22 → SUATTDRO 08-26 01:22 → N.TELES 08-26 08:31 → N.TELEN 08-26 17:34
PROVIDERS: ADMIT Internal Medicine; ATTEND Internal Medicine

== ENCOUNTER 2020-12-02 19:01 | Inpatient (IN) ==
[2020-12-02] MEDS ORDERED: MORPHINE 4 MG/1 ML VIAL IV STA ×2 (19:38→20:50)
[2020-12-02] MEDS ORDERED: ONDANSETRON 4 MG/2 ML VIAL IV STA (19:38)
[2020-12-02] MEDS ORDERED: HYDROmorphone 2 MG/1 ML VIAL IV PRN (20:08)
[2020-12-02] MEDS ORDERED: ONDANSETRON 4 MG/2 ML VIAL IV PRN (20:08)
[2020-12-02] MEDS ORDERED: PIPERACILLIN/TAZOBACTAM 3,375 MG in SODIUM CHLORIDE 0.9% 100 ML IV STA (20:39)
[2020-12-02] MEDS: DEXTROSE 5% NACL 0.45% 1,000 ML IV SCH (22:32)
[2020-12-03 06:39] LABS: Basophils % 0.2 % (0.0-0.8); Eosinophils % 0.1 % (0.00-10.9); Hematocrit 36.3 VOL% (35.7-47.0); Hemoglobin 11.6 GM/DL (12.0-16.0); Immature Granulocytes % 0.4 %; Immature Granulocytes Absolute 0.03 #; Lymphocytes # 1.2 10*3/uL (1.4-4.0); Lymphocytes % 14.9 % (21.3-54.2); Mean Corpuscular Volume 87.1 FL (87-102); Mean Platelet Volume 13.6 FL (9.6-12.0); Neutrophils % 75.4 % (38.7-73.9); Platelet Count 155 T/CUMM (130-400); Red Blood Count 4.17 MC/CUMM (3.8-5.5); Red Cell Distribution Width 13.2 % (9.3-17.3); White Blood Count 8.2 T/CUMM (4-12)
[2020-12-03 06:59] LABS: Calcium 8.5 MG/DL (8.5-10.1); Osmolality,Calculated 268.2 MOS/KG (273-304); Potassium 3.9 MMOL/L (3.5-5.1)
[2020-12-03 07:02] LABS: Hypochromasia Slight; Microcytosis Slight; Platelet Estimate Adequate
[2020-12-03] MEDS: DEXTROSE 5% NACL 0.45% 1,000 ML IV SCH ×5 (07:25→23:47)
[2020-12-03] MEDS ORDERED: MAGNESIUM HYDROXIDE SUSP 30 ML UDCUP PO ONE (08:01)
[2020-12-03] MEDS: PANTOPRAZOLE 40 MG TABLET PO SCH (08:06)
[2020-12-03] MEDS: MAGNESIUM OXIDE 400 MG TABLET PO SCH (16:59)
[2020-12-04 05:41] LABS: Basophils % 0.2 % (0.0-0.8); Eosinophils # 0.1 10*3/uL (0.0-0.87); Eosinophils % 1.8 % (0.00-10.9); Hemoglobin 10.4 GM/DL (12.0-16.0); Immature Granulocytes % 0.2 %; Immature Granulocytes Absolute 0.01 #; Lymphocytes % 23.5 % (21.3-54.2); Mean Corpuscular HGB Conc 31.5 GM/DL (32-36); Mean Platelet Volume 13.4 FL (9.6-12.0); Monocytes % 12.5 % (1.7-12.7); Neutrophils % 61.8 % (38.7-73.9); Platelet Count 120 T/CUMM (130-400); Red Blood Count 3.75 MC/CUMM (3.8-5.5); Red Cell Distribution Width 13.2 % (9.3-17.3); White Blood Count 4.4 T/CUMM (4-12)
[2020-12-04 05:54] LABS: Calcium 8.2 MG/DL (8.5-10.1); Osmolality,Calculated 276.4 MOS/KG (273-304); Potassium 4.2 MMOL/L (3.5-5.1)
[2020-12-04 06:19] LABS: Hypochromasia 1+; Microcytosis 1+; Platelet Estimate Normal
[2020-12-04] MEDS: DEXTROSE 5% NACL 0.45% 1,000 ML IV SCH ×4 (06:59→16:13)
[2020-12-04] MEDS: lisinopriL 2.5 MG TABLET PO SCH (08:42)
[2020-12-04] MEDS: ASPIRIN EC 81 MG TABLET PO SCH (08:43)
[2020-12-04] MEDS: POTASSIUM CHLORIDE 10 MEQ TABLET PO SCH (08:43)
[2020-12-04] MEDS: FUROSEMIDE 40 MG TABLET PO SCH (08:43)
[2020-12-04] MEDS: MAGNESIUM OXIDE 400 MG TABLET PO SCH ×2 (08:43→16:13)
[2020-12-04] MEDS: AMIODARONE 200 MG TABLET PO SCH (08:43)
[2020-12-04] MEDS: LORATADINE 10 MG TABLET PO SCH (08:43)
[2020-12-04] MEDS: PANTOPRAZOLE 40 MG TABLET PO SCH (08:44)
[2020-12-04] MEDS ORDERED: MESALAMINE 0.375 GM PO SCH (09:00)
[2020-12-04] MEDS ORDERED: BISACODYL 10 MG SUPP RECTAL ONE ×2 (10:01→11:00)
[2020-12-04] MEDS ORDERED: MAGNESIUM HYDROXIDE SUSP 30 ML UDCUP PO ONE (10:01)
[2020-12-04] MEDS ORDERED: BISACODYL 5 MG TABLET PO ONE (12:47)
[2020-12-04] MEDS: DIGOXIN 0.125 MG TABLET PO SCH (12:52)
[2020-12-05] MEDS: DEXTROSE 5% NACL 0.45% 1,000 ML IV SCH ×3 (00:31→13:38)
[2020-12-05] MEDS: FUROSEMIDE 40 MG TABLET PO SCH (09:11)
[2020-12-05] MEDS: PANTOPRAZOLE 40 MG TABLET PO SCH (09:12)
[2020-12-05] MEDS: ASPIRIN EC 81 MG TABLET PO SCH (09:12)
[2020-12-05] MEDS: MAGNESIUM OXIDE 400 MG TABLET PO SCH ×2 (09:12→17:00)
[2020-12-05] MEDS: lisinopriL 2.5 MG TABLET PO SCH (09:12)
[2020-12-05] MEDS: POTASSIUM CHLORIDE 10 MEQ TABLET PO SCH (09:12)
[2020-12-05] MEDS: LORATADINE 10 MG TABLET PO SCH (09:12)
[2020-12-05] MEDS: AMIODARONE 200 MG TABLET PO SCH (09:12)
[2020-12-05] MEDS ORDERED: BISACODYL 10 MG SUPP RECTAL ONE (11:49)
[2020-12-05] MEDS: DIGOXIN 0.125 MG TABLET PO SCH (14:11)
[2020-12-05] MEDS: POLYETHYLENE GLYCOL POWDER 17 GM PACK PO SCH (21:18)
[2020-12-06] MEDS: POTASSIUM CHLORIDE 10 MEQ TABLET PO SCH (09:18)
[2020-12-06] MEDS: MAGNESIUM OXIDE 400 MG TABLET PO SCH ×2 (09:18→17:58)
[2020-12-06] MEDS: lisinopriL 2.5 MG TABLET PO SCH (09:18)
[2020-12-06] MEDS: AMIODARONE 200 MG TABLET PO SCH (09:18)
[2020-12-06] MEDS: PANTOPRAZOLE 40 MG TABLET PO SCH (09:18)
[2020-12-06] MEDS: ASPIRIN EC 81 MG TABLET PO SCH (09:18)
[2020-12-06] MEDS: LORATADINE 10 MG TABLET PO SCH (09:18)
[2020-12-06] MEDS: FUROSEMIDE 40 MG TABLET PO SCH (09:18)
[2020-12-06] MEDS: POLYETHYLENE GLYCOL POWDER 17 GM PACK PO SCH ×2 (09:54→21:05)
[2020-12-06] MEDS: DIGOXIN 0.125 MG TABLET PO SCH (13:31)
[2020-12-07] MEDS: lisinopriL 2.5 MG TABLET PO SCH (09:44)
[2020-12-07] MEDS: FUROSEMIDE 40 MG TABLET PO SCH (09:45)
[2020-12-07] MEDS: AMIODARONE 200 MG TABLET PO SCH (09:45)
[2020-12-07] MEDS: PANTOPRAZOLE 40 MG TABLET PO SCH (09:45)
[2020-12-07] MEDS: MAGNESIUM OXIDE 400 MG TABLET PO SCH (09:45)
[2020-12-07] MEDS: LORATADINE 10 MG TABLET PO SCH (09:46)
[2020-12-07] MEDS: ASPIRIN EC 81 MG TABLET PO SCH (09:46)
[2020-12-07] MEDS: POTASSIUM CHLORIDE 10 MEQ TABLET PO SCH (09:46)
[2020-12-07] MEDS: POLYETHYLENE GLYCOL POWDER 17 GM PACK PO SCH (09:47)
[2020-12-07 12:44] VITALS: BP 107/60
[2020-12-07] MEDS: DIGOXIN 0.125 MG TABLET PO SCH (14:31)
== END 2020-12-07 16:26 | disposition home or self-care (01) | DRG 392 ==
LOC: EDUNIT# → EDBD → N.ED 19:01 → N.TELEN 19:01
PROVIDERS: ADMIT Emergency Medicine; ATTEND Student in an Organized Health Care Education/Training Program

== ENCOUNTER 2022-09-03 14:19 | Observation (INO) ==
[2022-09-03 15:04] LABS: Basophils % 0.5 % (0.0-0.8); Eosinophils # 0.1 10*3/uL (0.0-0.87); Eosinophils % 1.7 % (0.00-10.9); Hematocrit 38.3 VOL% (35.7-47.0); Hemoglobin 11.8 GM/DL (12.0-16.0); Immature Granulocytes % 0.3 %; Immature Granulocytes Absolute 0.02 #; Lymphocytes # 0.8 10*3/uL (1.4-4.0); Lymphocytes % 12.5 % (21.3-54.2); Mean Corpuscular HGB Conc 30.8 GM/DL (32-36); Mean Corpuscular Volume 88.5 FL (87-102); Mean Platelet Volume 13.6 FL (9.6-12.0); Monocytes # 0.3 10*3/uL (0.11-0.8); Monocytes % 5.3 % (1.7-12.7); Neutrophils % 79.7 % (38.7-73.9); Platelet Count 153 T/CUMM (130-400); Red Blood Count 4.33 MC/CUMM (3.8-5.5); Red Cell Distribution Width 13.4 % (9.3-17.3)
[2022-09-03 15:27] LABS: Albumin 3.9 G/DL (3.4-5.0); Bilirubin,Total 0.4 MG/DL (0.20-1.00); Calcium 9.1 MG/DL (8.5-10.1); Eosinophils 4 % (0-10); Lymphocytes 12 % (20-55); Osmolality,Calculated 283.3 MOS/KG (273-304); Platelet Estimate Adequate; Potassium 3.7 MMOL/L (3.5-5.1); Total Cells Counted 100; Total Protein 8.1 G/DL (6.4-8.2)
[2022-09-03 15:28] LABS: Hypochromia Slight
[2022-09-03 16:45] LABS: Bilirubin,Urine Negative (Negative); Blood, Urine Negative (Negative); Glucose,Urine (UA) Negative (Negative); Hyaline Casts,Urine 15 /LPF (0-3); Ketones,Urine Negative (Negative); Mucus,Urine Occasional /LPF (Occasional); Nitrite,Urine Negative (Negative); Protein,Urine Negative (Negative); RBC,Urine 1 /HPF (0-4); Squamous Epithelial Cell,Urine Occasional /HPF (0-10); Urine Appearance CLEAR (Clear); Urine Color Yellow (Yellow); Urine Specific Gravity 1.028 (1.001-1.035); Urine Urobilinogen < 2.0 eU/dL (<2.0)
[2022-09-03] MEDS ORDERED: ONDANSETRON 4 MG/2 ML VIAL IV PRN (17:48)
[2022-09-03] MEDS ORDERED: ACETAMINOPHEN 325 MG TABLET PO PRN (17:48)
[2022-09-03] MEDS ORDERED: ZALEPLON 5 MG CAPSULE PO PRN (17:48)
[2022-09-03] MEDS ORDERED: hydrOXYzine HCL 10 MG TABLET PO PRN (17:52)
[2022-09-03] MEDS ORDERED: SODIUM CHLORIDE 0.9% 1,000 ML IV SCH (18:00)
[2022-09-03] MEDS ORDERED: cephALEXin 250 MG CAPSULE PO SCH (18:00)
[2022-09-03] MEDS ORDERED: FUROSEMIDE 20 MG TABLET PO SCH (19:00)
[2022-09-03] MEDS: POTASSIUM CHLORIDE 10 MEQ TABLET PO SCH (20:36)
[2022-09-03] MEDS ORDERED: ENOXAPARIN 40 MG/0.4 ML SYRINGE SUBCUT SCH (21:00)
[2022-09-04 05:59] LABS: Basophils % 0.6 % (0.0-0.8); Eosinophils # 0.2 10*3/uL (0.0-0.87); Eosinophils % 5.1 % (0.00-10.9); Hemoglobin 9.7 GM/DL (12.0-16.0); Immature Granulocytes % 0.3 %; Immature Granulocytes Absolute 0.01 #; Lymphocytes % 28.9 % (21.3-54.2); Mean Corpuscular HGB Conc 31.3 GM/DL (32-36); Mean Corpuscular Volume 88.1 FL (87-102); Mean Platelet Volume 14.2 FL (9.6-12.0); Monocytes # 0.4 10*3/uL (0.11-0.8); Monocytes % 11.1 % (1.7-12.7); Platelet Count 140 T/CUMM (130-400); Red Blood Count 3.52 MC/CUMM (3.8-5.5); Red Cell Distribution Width 13.5 % (9.3-17.3); White Blood Count 3.5 T/CUMM (4-12)
[2022-09-04 06:17] LABS: Albumin 2.8 G/DL (3.4-5.0); Bilirubin,Total 0.4 MG/DL (0.20-1.00); Calcium 8.2 MG/DL (8.5-10.1); Osmolality,Calculated 287.7 MOS/KG (273-304); Total Protein 6.3 G/DL (6.4-8.2)
[2022-09-04] MEDS ORDERED: MAGNESIUM OXIDE 400 MG TABLET PO SCH (08:00)
[2022-09-04] MEDS ORDERED: DIGOXIN 0.125 MG TABLET PO SCH (09:00)
[2022-09-04] MEDS ORDERED: ASPIRIN EC 81 MG TABLET PO SCH (09:00)
[2022-09-04] MEDS ORDERED: FUROSEMIDE 40 MG TABLET PO SCH (09:00)
[2022-09-04] MEDS ORDERED: PANTOPRAZOLE 40 MG TABLET PO SCH (09:00)
[2022-09-04] MEDS ORDERED: MULTIVITAMIN (CENTRUM) TABLET PO SCH (09:00)
[2022-09-04] MEDS ORDERED: NON-FORMULARY MEDICATION (Omeprazole 20 MG capsule,delayed release(DR/EC)) PO SCH (09:00)
[2022-09-04] MEDS ORDERED: AMIODARONE 200 MG TABLET PO SCH (09:00)
[2022-09-04] MEDS: POTASSIUM CHLORIDE 10 MEQ TABLET PO SCH (10:40)
[2022-09-04 12:04] VITALS: BP 94/44
[2022-09-04] MEDS ORDERED: MESALAMINE 0.375 GM PO SCH (13:00)
== END 2022-09-04 13:56 | disposition home or self-care (01) ==
LOC: N.ED 14:19 → N.EDINP 14:19 → N.2W 19:15
PROVIDERS: ADMIT Internal Medicine; ATTEND Internal Medicine